=== PATIENT | female | born 1990 | race Caucasian/White ===

== ENCOUNTER → 2021-01-18 14:13 | Outpatient (BNVA) | payer SELFPAY | PROVIDERS: PCP Family Medicine; Visit Provider Registered Nurse Neonatal Intensive Care | DX: J02.9 Acute pharyngitis, unspecified (principal) | CPT/HCPCS: 87880 ==

== ENCOUNTER 2022-03-08 14:36 | Emergency (ER) | payer MEDICAID, SELFPAY ==
[2022-03-08 14:42] VITALS: BP 132/86; PULSE 87; RESP 16; TEMP 36.3; O2SAT 98
--- NOTE | 2022-03-08 14:54 | ED_ITS ---
HPI - Abdominal Pain General: Chief Complaint: Abdominal Pain Stated Complaint: Stomach pain and UTI plus H-pylori Time Seen by Provider: 03/08/22 14:44 Source: patient Mode of arrival: ambulatory Limitations: no limitations History of Present Illness: 31-year-old female states over the last week she has been having upper abdominal pain. She states she had H. pylori roughly 5 years ago and states this feels similar. States she has a burning sensation in her abdomen that goes into her esophagus at times much worse with eating states her pain currently is a 4 out of 10 denies any vomiting or diarrhea denies any fevers. Associated Symptoms: Denies chills, dysuria and fever(s) Review of Systems Const: Denies: fever(s), chills, body aches or change in appetite Eyes: Denies: blurry vision or eye discomfort ENMT: Denies: throat pain or dental pain Card: Denies: chest pain Resp: Denies: dyspnea GI: Reports: abdominal pain : Denies: dysuria Musc: Denies: neck pain or back pain Skin/Breast: Denies: rash Neuro: Denies: headache(s) Psych: Denies: depression Mt/Lymph: Denies: easy bruising All/Imm: Denies: urticaria PFSH ED PFSH: Medical History (Updated 03/08/22 @ 16:36 by Marsha Hodge MD) No pertinent past medical history Social History Smoking and tobacco status: never smoked Physical Exam Const: COMMON NORMALS: no acute distress, patient oriented x3 and healthy appearing HENMT: COMMON NORMALS: normocephalic and atraumatic HEAD & SCALP: normocephalic and atraumatic Eye: COMMON NORMALS: Equal, round and reactive pupils present and EOMs intact bilaterally PUPIL: Yes Equal, round and reactive pupils present Neck/C-Spine: COMMON NORMALS: full ROM and supple Chest: COMMONS NORMALS: normal inspection of the chest and normal palpation of entire chest wall Resp: COMMON NORMALS: normal respiratory effort, No retractions, No use of accessory muscles and clear to auscultation bilaterally AUSCULTATION: clear to auscultation bilaterally Cardio: COMMON NORMALS: regular rate, regular rhythm and No murmurs present (Cardio) RATE: regular rate RHYTHM: regular rhythm GI: COMMON NORMALS: Normal to inspection, nondistended, normoactive bowel sounds present, Soft to palpation, non-tender and no masses PALPATION: Yes Soft to palpation Extremity: COMMON NORMALS: normal to inspection and full ROM Neuro: COMMON NORMALS: patient oriented x3, moves all extremities and no focal motor deficits Psych: COMMON NORMALS: mental status grossly normal, Normal thought process present and cooperative THOUGHT PROCESS: Normal thought process present Skin: COMMON NORMALS: no rashes or lesions noted and no wounds GENERAL SKIN EXAM: no rashes or lesions noted Course Vital Signs: Vital signs: Vital Signs Temperature 97.4 F L 03/08/22 14:42 Pulse Rate 87 03/08/22 14:42 Respiratory Rate 16 03/08/22 14:42 Blood Pressure 132/86 03/08/22 14:42 Pulse Oximetry 98 03/08/22 14:42 MDM - Abdominal Pain Medical Decision Making Patient presents with abdominal pain likely gastritis or H. pylori is negative her CT and ultrasound are negative as well. Blood work here is normal with a mild leukocytosis we will start her on pain meds along with sulcal fate and Protonix we will get her follow-up with surgery as she likely needs an endoscope she feels improved she stable for discharge is to follow-up with surgeon and return if worsening. Lab Data : 03/08/22 15:19 03/08/22 15:19 Labs/Radiology: Radiology Impressions Abdomen/Pelvis CT 03/08/22 16:01 IMPRESSION: No acute abnormality is seen in the abdomen or pelvis. Laboratory Results WBC 14.6 10^3/uL (4.0-10.0) H 03/08/22 15:19 RBC 5.01 10^6/uL (4.1-5.3) 03/08/22 15:19 Hgb 14.1 g/dL (11.5-15.3) 03/08/22 15:19 Hct 43.6 % (37.0-47.0) 03/08/22 15:19 MCV 87.0 fl (81-99) 03/08/22 15:19 MCH 28.1 pg (28.0-34.0) 03/08/22 15:19 MCHC 32.3 g/dL (30.0-36.0) 03/08/22 15:19 RDW 13.8 % (12.1-15.1) 03/08/22 15:19 Plt Count 259 10^3/cmm (130-400) 03/08/22 15:19 MPV 11.6 fL (7.4-10.4) H 03/08/22 15:19 Neut % (Auto) 74.4 % 03/08/22 15:19 Lymph % (Auto) 21.0 % 03/08/22 15:19 [place] % (Auto) 3.8 % 03/08/22 15:19 Eos % (Auto) 0.3 % 03/08/22 15:19 Baso % (Auto) 0.2 % 03/08/22 15:19 Neut # (Auto) 10.86 10^3/uL (1.8-7.7) H 03/08/22 15:19 Lymph # (Auto) 3.1 10^3/uL (0.8-4.8) 03/08/22 15:19 [place] # (Auto) 0.6 10^3/uL (0.2-0.9) 03/08/22 15:19 Eos # (Auto) 0.0 10^3/uL (0.0-0.8) 03/08/22 15:19 Baso # (Auto) 0.0 10^3/uL (0.0-0.1) 03/08/22 15:19 Nucleated RBC % (auto) 0 % 03/08/22 15:19 Nucleated RBCs # 0.0 /100WBC 03/08/22 15:19 Sodium 136 mmol/L (136-145) 03/08/22 15:19 Potassium 3.7 mmol/L (3.5-5.1) 03/08/22 15:19 Chloride 101 mmol/L (98-107) 03/08/22 15:19 Carbon Dioxide 20 mmol/L (22-29) L 03/08/22 15:19 Anion Gap 18.7 (5-19) 03/08/22 15:19 BUN 15 mg/dL (6-20) 03/08/22 15:19 Creatinine 0.6 mg/dL (0.5-0.9) 03/08/22 15:19 GFR Calculation 118.2 mL/min (90-130) 03/08/22 15:19 Glucose 89 mg/dL (65-115) 03/08/22 15:19 Calculated Osmolality 282 mOsm/kg (285-295) L 03/08/22 15:19 Calcium 8.8 mg/dL (8.5-10.5) 03/08/22 15:19 Total Bilirubin 0.3 mg/dL (0.15-1.2) 03/08/22 15:19 AST 24 U/L (0-32) 03/08/22 15:19 ALT 18 U/L (0-33) 03/08/22 15:19 Alkaline Phosphatase 82 IU/L (35-105) 03/08/22 15:19 Total Protein 7.8 g/dL (6.6-8.7) 03/08/22 15:19 Albumin 4.2 g/dL (3.5-5.2) 03/08/22 15:19 Globulin 3.6 g/dL (1.3-4.6) 03/08/22 15:19 Lipase 58 U/L (13-60) 03/08/22 15:19 HCG, Qual Negative (Negative) 03/08/22 15:19 Urine Color Yellow (Yellow) 03/08/22 14:52 Urine Appearance Sl hazy (CLEAR) 03/08/22 14:52 Urine pH 6.5 (5-7) 03/08/22 14:52 Ur Specific [place] 1.015 (1.005-1.030) 03/08/22 14:52 Urine Protein Neg (Negative) 03/08/22 14:52 Urine Glucose (UA) Norm (Normal) 03/08/22 14:52 Urine Ketones 1+ (Negative) H 03/08/22 14:52 Urine Blood Neg (Negative) 03/08/22 14:52 Urine Nitrate Negative (Negative) 03/08/22 14:52 Urine Bilirubin Neg (Negative) 03/08/22 14:52 Urine Urobilinogen 1 mg/dL (Negative) H 03/08/22 14:52 Ur Leukocyte Esterase 1+ (Negative) H 03/08/22 14:52 Urine RBC None /hpf (0-2) 03/08/22 14:52 Urine WBC 10-15 /hpf (0-5) H 03/08/22 14:52 Ur Squamous Epith Cells 5-10 /hpf (0-5) H 03/08/22 14:52 Amorphous Sediment Not Reportable 03/08/22 14:52 Urine Bacteria Trace /hpf (NONE) 03/08/22 14:52 Urine Mucus Trace /hpf 03/08/22 14:52 H. pylori IgG Antibody Cancelled 03/08/22 15:19 H. pylori IgG Antibody Negative (Negative) 03/08/22 15:19 Discharge Plan Discharge Patient Disposition: Home Clinical Impression: Abdominal pain Condition: Stable Prescriptions: New hydrocodone-acetaminophen 5-325 mg tablet 1 tab PO Q6H PRN (Reason: pain) Qty: 14 0RF Protonix 40 mg tablet,delayed release (DR/EC) 40 mg PO DAILY Qty: 60 0RF ondansetron 4 mg tablet,disintegrating 4 mg PO Q6H PRN (Reason: nausea and vomiting) Qty: 14 0RF sucralfate 1 gram tablet 1 g PO BID 28 Days Qty: 56 0RF No Action amoxicillin-pot clavulanate [Augmentin] 875-125 mg tablet 1 tab PO BID 7 Days Qty: 14 0RF Rx Instructions: 340B pricing please Discharge Orders: Discharge ED (Routine); Ordered 03/08/22 Ordered By: Marsha Hodge Referrals: Yomi Castanon MD [Physician] - 1-3 days Jarrod Rossi MD [Primary Care Provider] - 1-3 days Discharge Diet: Advance as tolerated Discharge Activity: Resume usual activity Patient Instructions: Abdominal Pain (ED), Opioid Safety Coding Level of Care Code ED Director Of Recruitment And Admissions for Chg Fwd Exam Comprehensive
[2022-03-08] MEDS: lidocaine 2% viscous 15 ML, aluminum-mag hydrox-simethicon 30 ML, sucralfate oral liq 1 GM PO (14:59)
[2022-03-08] MEDS: ondansetron 2 mg/ML SDV 2 mL 4 MG IVP ×2 (15:21→16:53)
[2022-03-08 15:28] LABS: Basophils % 0.2 %; Eosinophils % 0.3 %; Hematocrit 43.6 % (37.0-47.0); Hemoglobin 14.1 g/dL (11.5-15.3); Lymphocytes # 3.1 10^3/uL (0.8-4.8); Mean Corpuscular HGB Conc 32.3 g/dL (30.0-36.0); Mean Corpuscular Hemoglobin 28.1 pg (28.0-34.0); Mean Platelet Volume 11.6 fL (7.4-10.4); Monocytes # 0.6 10^3/uL (0.2-0.9); Monocytes % 3.8 %; Neutrophils # 10.86 10^3/uL (1.8-7.7); Neutrophils % 74.4 %; Nucleated Red Blood Cells % 0 %; Platelet Count 259 10^3/cmm (130-400); Red Blood Count 5.01 10^6/uL (4.1-5.3); Red Cell Distribution Width 13.8 % (12.1-15.1); White Blood Count 14.6 10^3/uL (4.0-10.0)
--- NOTE | 2022-03-08 15:30 | USR_ITS ---
PROCEDURE INFORMATION: Exam: US Abdomen, Limited; Right Upper Quadrant Exam date and time: 03/08/2022 4:25 PM Age: 31 years old Clinical indication: Abdominal pain; Epigastric; Additional info: Abd pain TECHNIQUE: Imaging protocol: Real time ultrasound of the abdomen with image documentation. Limited exam focused on the right upper quadrant. COMPARISON: CT abdomen pelvis wo con [id number] 03/08/2022 4:07 PM FINDINGS: Liver: Mild elongation of the right hepatic lobe is noted, which is likely a normal variant. Normal echogenicity. No parenchymal lesion is seen. Gallbladder: Normal. No gallstones. There is no gallbladder wall thickening. Biliary ducts: The common bile duct is normal measuring 3.4 mm in diameter. Pancreas: Visualized pancreas is unremarkable. Right kidney: The right kidney appears normal measuring 10.3 x 4.9 x 4.2 cm. No hydronephrosis. Aorta: The visualized abdominal aorta appears normal. No aneurysm. Portal venous: Portal venous flow is hepatopetal. US/US gall bladder [id number] IMPRESSION: No acute abnormality is seen. Normal study.
[2022-03-08 15:39] LABS: HCG, Serum Qual Negative (Negative)
[2022-03-08 15:46] LABS: H. Pylori IgG Antibody Negative (Negative)
[2022-03-08 15:52] LABS: Alanine Aminotransferase 18 U/L (0-33); Albumin Level 4.2 g/dL (3.5-5.2); Alkaline Phosphatase 82 IU/L (35-105); Blood Urea Nitrogen 15 mg/dL (6-20); Calcium 8.8 mg/dL (8.5-10.5); Carbon Dioxide 20 mmol/L (22-29); Chloride 101 mmol/L (98-107); Globulin 3.6 g/dL (1.3-4.6); Glomerular Filtration Rate 118.2 mL/min (90-130); Glucose 89 mg/dL (65-115); Lipase 58 U/L (13-60); Osmolality Calculated 282 mOsm/kg (285-295); Sodium 136 mmol/L (136-145); Total Bilirubin 0.3 mg/dL (0.15-1.2); Total Protein 7.8 g/dL (6.6-8.7)
[2022-03-08 15:54] LABS: Anion Gap 18.7 (5-19); Aspartate Amino Transferase 24 U/L (0-32); Potassium 3.7 mmol/L (3.5-5.1)
[2022-03-08 15:54] LABS: Bilirubin Urine Neg (Negative); Blood Urine Neg (Negative); Glucose Urine UA Norm (Normal); Ketones Urine 1+ (Negative); Nitrate Urine Negative (Negative); Protein Urine Neg (Negative); Specific Gravity, Urine 1.015 (1.005-1.030); Urine Appearance SL Hazy (CLEAR); Urine Color Yellow (Yellow); pH Urine 6.5 (5-7)
[2022-03-08 15:55] LABS: Add Urine Microscopic? YES; Leukocyte Esterase Urine 1+ (Negative); Urobilinogen Urine 1 mg/dL (Negative)
[2022-03-08 15:59] LABS: Bacteria Urine TRACE /hpf; Mucus Urine TRACE /hpf
[2022-03-08 16:00] LABS: Add Urine Culture? No
--- NOTE | 2022-03-08 16:01 | CTR_ITS ---
PROCEDURE INFORMATION: Exam: CT Abdomen And Pelvis Without Contrast Exam date and time: 03/08/2022 4:07 PM Age: 31 years old Clinical indication: Abdominal pain; Epigastric; Additional info: Abd pain ruq and rlq TECHNIQUE: Imaging protocol: Computed tomography of the abdomen and pelvis without contrast. Radiation optimization: All CT scans at this facility use at least one of these dose optimization techniques: automated exposure control; mA and/or kV adjustment per patient size (includes targeted exams where dose is matched to clinical indication); or iterative reconstruction. COMPARISON: [facility] OB Follow up 09/14/2018 8:31 AM RADIATION DOSE METRICS: Total DLP (mGy-cm): 856.41 FINDINGS: Liver: Normal. No mass. Gallbladder and bile ducts: Normal. No calcified stones. No ductal dilation. Pancreas: Normal. No ductal dilation. Spleen: Normal. No splenomegaly. Adrenal glands: Normal. No mass. Kidneys and ureters: Normal. No renal stone or hydronephrosis. Stomach and bowel: Unremarkable. No obstruction. No mucosal thickening. Appendix: The appendix is normal. Intraperitoneal space: Unremarkable. No free air. No significant fluid collection. Vasculature: Unremarkable. No abdominal aortic aneurysm. Lymph nodes: Unremarkable. No enlarged lymph nodes. Urinary bladder: Unremarkable as visualized. Reproductive: The uterus and ovaries appear normal. Bones/joints: Unremarkable. No acute fracture. Soft tissues: Unremarkable. CT/CT abdomen pelvis con [id number] IMPRESSION: No acute abnormality is seen in the abdomen or pelvis.
[2022-03-08 16:53] VITALS: RESP 16
[2022-03-08] MEDS: morphine 4 mg/mL SDV 1 mL IVP (16:53)
[2022-03-08 16:58] VITALS: BP 109/79; PULSE 78; RESP 16; O2SAT 100
[2022-03-08 17:22] VITALS: PULSE 79; RESP 16; O2SAT 100
--- NOTE | 2022-03-11 10:29 | DCPLANNER ---
Addendum entered by Valerie Alexis 03/27/22 08:20: Patient had a follow up appointment scheduled for 03.24.[address] Valerio at [facility] - patient did attend appointment. Original Note: financial reporting manager had message to schedule a follow up appointment for patient with general surgery. financial reporting manager sent patients information to the front office staff at general surgery. Patients information will be printed and reviewed. Clinic will call patient with appointment information.
== END 2022-03-08 17:23 | disposition home or self-care (01) ==
PROVIDERS: Emergency Provider Emergency Medicine; PCP Family Medicine
DX: R10.9 Unspecified abdominal pain (principal)
CPT/HCPCS: 74176; 76705; 80053; 81001; 83690; 84703; 85025; 86677; 96374; 96375; 96376; 99285; J2270; J2405

== ENCOUNTER → 2022-03-24 08:12 | Outpatient (BNVA) | payer MEDICAID, SELFPAY | PROVIDERS: PCP Family Medicine; Visit Provider Surgery | DX: R10.13 Epigastric pain (principal) | CPT/HCPCS: 99203 ==

== ENCOUNTER 2022-04-23 09:20 | Outpatient (CLI) | payer MEDICAID, SELFPAY ==
--- NOTE | 2022-04-23 10:00 | NM_ITS ---
WS: [id number] NUCLEAR MEDICINE HIDA SCAN WITH GALLBLADDER EJECTION FRACTION HISTORY: abdominal pain COMPARISON: Gallbladder ultrasound 03/08/2022 TECHNIQUE: The patient was intravenously injected with 7.5 mCi of TC99m Mebrofenin. Immediate imaging over the right upper quadrant was followed by 5 minute image and additional images for a total of 60 minutes. Normal uptake of radiotracer throughout the liver. Activity identified in the gallbladder at 10 minutes and well distended by 60 minutes. Activity in the proximal small bowel was not definitely visualized at 60 minutes. Good washout of the radiotracer from the liver by 60 minutes. The patient then drank 8 ounces of Ensure Plus. Ejection fraction at 60 minutes was 84%. Normal GB ej ection fraction is 35-75%. Post fatty meal symptoms: None. NM/NM hepatobiliary w phar* [id number] IMPRESSION: 1. Normal HIDA scan. 2. Normal gallbladder ejection fraction.
== END 2022-04-23 09:21 | disposition home or self-care (01) ==
PROVIDERS: PCP Family Medicine; Visit Provider Surgery
DX: R10.13 Epigastric pain (principal)
CPT/HCPCS: 78227; A9537

== ENCOUNTER 2022-05-08 07:04 | Day surgery (SDC) | payer MEDICAID, SELFPAY ==
[2022-05-06 11:51] VITALS: BMI 37.7
[2022-05-08 07:20] VITALS: BP 138/84; PULSE 81; RESP 18; TEMP 36.9; O2SAT 98
--- NOTE | 2022-05-08 07:28 | ANES.PREANE2 ---
Pre-Anesthetic Assessment Height/Weight: Height 1.52 m Weight 87.543 kg Temp Pulse Resp BP Pulse Ox O2 Del Method 98.5 F 81 18 138/84 98 05/08/22 07:20 05/08/22 07:20 05/08/22 07:20 05/08/22 07:20 05/08/22 07:20 05/08/22 07:20 Preop Diagnosis: Epigastric pain Operation Date: 05/08/22 08:30 Proposed Procedures p EGD 55401,R10.13(Not Applicable) - William Valerio MD Familial anesthetic complications: NOne Was Beta Baldomero taken within 24 hours: N/A Was Clonidine taken within 24 hours: N/A Last intake: Intake Last Liquid Date 05/07/22 Last Liquid Time 23:59 Last Solid Date 05/07/22 Last Solid Time 20:00 Social No alcohol and No tobacco Exam alert, oriented x 3, clear to auscultation bilaterally and regular rate & rhythm Airway Mallampati: Class I Dentition: full GI Gastroesophageal Reflux Disease Metabolic Morbid Obesity Anesthetic Plan ASA status: 2 Anesthesia: MAC Risk of > 500 ml blood loss (7ml/kg in children): No Medications/Allergies Home Medications Medication Instructions Recorded Confirmed Last Taken Type ondansetron 4 mg disintegrating 4 mg PO Q6H PRN nausea and 03/08/22 05/06/22 05/06/22 Rx tablet vomiting #14 tabs pantoprazole 40 mg tablet,delayed 40 mg PO DAILY #60 tabs 03/08/22 05/06/22 05/06/22 Rx release (Protonix) sucralfate 1 gram tablet 1 g PO BID 05/06/22 05/06/22 05/06/22 History Allergies Allergy/AdvReac Type Severity Reaction Status Date / Time No Known Allergies Allergy Verified 05/06/22 11:49 PFSH Anesthesia Medical History No pertinent past medical history Social History Smoking and tobacco status: never smoked Female Reproductive History Date of last menstrual period: 04/11/22 Data Anesthesia Cardiac Studies: No Data to Display
[2022-05-08 07:29] LABS: OR HCG Qualitative Urine Negative (Negative)
[2022-05-08] MEDS: sodium chloride 0.9% 1,000 ML 30 ML IV (07:31)
--- NOTE | 2022-05-08 07:33 | P.HP_ITS ---
Same Day Surgery H&P Indication for Procedure/HPI DATE OF PROCEDURE: May 08, 2022 CHIEF COMPLAINT/INDICATIONFOR SURGICAL PROCEDURE: My estelita fragoso PREOP DIAGNOSIS: Epigastric pain PLANNED PROCEDURE: Operation Date: 05/08/22 08:30 Proposed Procedures p EGD 25120,R10.13(Not Applicable) - William Valerio MD 03/24/2022 This is a pleasant 31 years old female patient with history of epigastric pain burning in nature and not being referred.? No associated nausea or vomiting fevers or chills.? Patient reports that she had history of H. pylori infection and she went to the ER after she did have [employer] food and a burger which made her hurting and she went for further evaluation, ultrasound of the gallbladder was done in the ER that did show normal findings followed by CT scan that was not of significance.? Patient currently feels better and she denies history of diarrhea.? Patient is referred to my practice for further evaluation. Patient reports that she has been on PPI therapy for years and it does not seem to help much. 05/08/2022 Patient comes today for diagnostic EGD Medications/Allergies* Home Medications Medication Instructions Recorded Confirmed Type sucralfate 1 gram tablet 1 g PO BID 05/06/22 05/06/22 History Allergies/Adverse Reactions Allergy/AdvReac Type Severity Reaction Status Date / Time No Known Allergies Allergy Verified 05/08/22 07:34 Current Medications: Generic Name Dose Route Start Last Admin Trade Name Freq PRN Reason Stop Dose Admin Sodium Chloride 1,000 mls @ 30 mls/hr 05/08/22 07:15 05/08/22 07:31 Sodium Chloride 0.9% IV 05/09/22 07:14 30 mls/hr .Q24H YAMILA Administration Pertinent History/Comorbid Conditions* Medical History (Updated 03/24/22 @ 10:08 by William Valerio MD) No pertinent past medical history Social History Smoking and tobacco status: never smoked Pertinent Exam Findings alert, oriented x 3, regular rate & rhythm and procedure specific exam findings (Abdominal exam nontender nondistended soft) Recommendations Surgery/Procedure today (EGD with possible biopsy) Coding Level of Care Code Acute [employer] [facility] Manager for Chg Fwd
[2022-05-08 08:51] VITALS: BP 112/67; PULSE 71; RESP 14; TEMP 36.3; O2SAT 94
[2022-05-08 09:00] VITALS: BP 107/72; PULSE 72; RESP 16; O2SAT 95
--- NOTE | 2022-05-08 14:01 | ANE.PACU2 ---
Inpatient post-anesthesia follow up: Airway intact: Yes Vital signs: Temperature 97.4 F Pulse Rate 72 Respiratory Rate 16 Blood Pressure 107/72 Pulse Oximetry 95 Oxygen Delivery Me thod Room Air Oxygen Flow Rate Fraction of Inspir ed Oxygen Hydration adequate: Yes Nausea and vomiting: No Pain level: 1 Mental status: Baseline
== END 2022-05-08 09:28 | disposition home or self-care (01) ==
PROVIDERS: Anesthesiology; PCP Family Medicine; Visit Provider Surgery
PROC: 0DJ08ZZ Inspection of Upper Intestinal Tract, Via Natural or Artificial Opening Endoscopic (ICD-10-PCS; CPT 43235; principal; 2022-05-08 08:30)
DX: R10.13 Epigastric pain (principal); K29.70 Gastritis, unspecified, without bleeding; K21.9 Gastro-esophageal reflux disease without esophagitis; E66.01 Morbid (severe) obesity due to excess calories; Z68.37 Body mass index [BMI] 37.0-37.9, adult
CPT/HCPCS: 43239; 81025; 84703; 88305; J2704; J3010; J7030

== ENCOUNTER → 2023-11-11 08:59 | Outpatient (BNVA) | payer MEDICAID, SELFPAY | PROVIDERS: PCP Family Medicine; Visit Provider Nurse Practitioner Family | DX: R39.9 Unspecified symptoms and signs involving the genitourinary system (principal); R10.30 Lower abdominal pain, unspecified | CPT/HCPCS: 81000 ==

== ENCOUNTER → 2023-11-24 10:21 | Outpatient (BNVA) | payer MEDICAID, SELFPAY | PROVIDERS: PCP Family Medicine; Visit Provider Nurse Practitioner Family | DX: J02.9 Acute pharyngitis, unspecified (principal) | CPT/HCPCS: 87071; 87880 ==

== ENCOUNTER 2024-11-29 09:20 | Outpatient (CLI) | payer OTHER, SELFPAY ==
--- NOTE | 2024-11-29 09:22 | MM_ITS ---
WS: [id number] DIAGNOSTIC BILATERAL DIGITAL BREAST TOMOSYNTHESIS MAMMOGRAPHY WITH CAD Bilateral breast ultrasound, limited HISTORY: MASTODYNIA COMPARISON: None available. TECHNIQUE: Bilateral craniocaudad, mediolateral oblique, and mediolateral views are submitted with tomosynthesis and SM. Spot compression bilateral CC views. Computer aided detection utilized. Breast composition: The breasts are heterogeneously dense, which may obscure small masses. Markers indicating area of pain noted bilaterally over each breast. There is no underlying mass identified. There are benign axillary tail lymph nodes. No nipple retraction. No suspicious grouping of calcifications. Bilateral breast ultrasound, limited. Patient directed hook and eye attacher to the areas of pain bilaterally within each breast. No masses or distortion or suspicious findings are identified. MM/MM diag BI tomosynthesis [id number] IMPRESSION: BI-RADS: 2 - Benign FOLLOW UP: Age 42 No ultrasound or mammographic abnormalities are identified within either breast in the areas of pain.
== END 2024-11-29 09:21 | disposition home or self-care (01) ==
PROVIDERS: PCP Family Medicine; Visit Provider Advanced Practice Midwife
DX: N64.4 Mastodynia (principal); R92.333 Mammographic heterogeneous density, bilateral breasts; R59.0 Localized enlarged lymph nodes
CPT/HCPCS: 76642; 77062; G0279

== ENCOUNTER 2025-04-06 08:08 | Outpatient (CLI) | payer SELFPAY ==
[2025-04-06 09:25] LABS: HF Add Manual Diff No
[2025-04-06 09:30] LABS: Hematocrit 41.4 % (36-47); Hemoglobin 13.30 g/dL (11.27-16.99); Mean Corpuscular HGB Conc 32.1 g/dL (30-55); Mean Corpuscular Hemoglobin 27.4 pg (27-33); Mean Corpuscular Volume 85.2 fl (85-98); Nucleated Red Blood Cells % 0 %; Platelet Count 224 10^3/cmm (157-399); Red Blood Count 4.86 10^6/uL (3.85-5.65); White Blood Count 6.38 10^3/uL (3.29-11.43)
[2025-04-06 09:56] LABS: Estmated Average Glucose 103; Hemoglobin A1C 5.2 % (4.0-6.0)
[2025-04-06 10:09] LABS: Alanine Aminotransferase 20 U/L (0-33); Albumin Level 4.2 g/dL (3.5-5.2); Alkaline Phosphatase 67 U/L (35-105); Anion Gap 13.1 (5-19); Aspartate Amino Transferase 20 U/L (0-32); Blood Urea Nitrogen 17 mg/dL (6-20); Calcium 8.9 mg/dL (8.5-10.5); Carbon Dioxide 25 mmol/L (22-29); Chloride 105 mmol/L (98-107); Cholesterol 190 mg/dL (0-200); Globulin 3.3 g/dL (1.3-4.6); Glucose 89 mg/dL (65-115); HDL Cholesterol 41 mg/dL (60-100); Osmolality Calculated 289 mOsm/kg (285-295); Potassium 4.1 mmol/L (3.5-5.1); Sodium 139 mmol/L (136-145); Thyroid Stimulating Hormone 1.62 uIU/mL (0.27-4.20); Total Protein 7.5 g/dL (6.6-8.7); Triglycerides 60 mg/dL (0-150)
== END 2025-04-06 08:09 | disposition home or self-care (01) ==
LOC: LAB 08:10
PROVIDERS: PCP Family Medicine; Visit Provider Dermatology
DX: Z01.89 Encounter for other specified special examinations (principal)
CPT/HCPCS: 36415